=== PATIENT | male | born 1955 | race Caucasian/White ===

== ENCOUNTER → 2021-12-04 | Outpatient (CLI) | payer MEDICARE, OTHER | LOC: HEART CORB 10:04 | DX: R06.02 Shortness of breath (principal); J44.9 Chronic obstructive pulmonary disease, unspecified; R60.0 Localized edema; I07.1 Rheumatic tricuspid insufficiency | CPT/HCPCS: 93306 ==

== ENCOUNTER → 2021-12-25 | Outpatient (CLI) | payer MEDICARE, OTHER | LOC: US 10:25 → EXRD 11:30 | DX: I87.2 Venous insufficiency (chronic) (peripheral) (principal); L81.9 Disorder of pigmentation, unspecified; R60.0 Localized edema | CPT/HCPCS: 93970 ==